=== PATIENT | male | born 1955 | race Caucasian/White ===

== ENCOUNTER 2024-08-17 23:53 | Inpatient (IN) | payer MEDICARE, SELFPAY ==
[2024-08-18] VITALS (14 sets, daily range): BP systolic 93–169; BP diastolic 60–111; PULSE 89–150; RESP 16–20; TEMP 36.4–36.7; O2SAT 93–97; BMI 22.3
--- NOTE | 2024-08-18 01:11 | PC.NURSE ---
pt states that he has had problems with urination thinks he is passing a kidney stone. provider made aware, pt states there is a man in his room ED8, this rn was present and no others in the room.
--- NOTE | 2024-08-18 01:18 | ED.PSYCH ---
HPI - Psych General Chief Complaint: Psychiatric Symptoms Stated Complaint: Audio/visual hallucinations, ETOH w/d? Time Seen by Provider: 08/18/24 00:12 Source: patient, EMS and police Mode of arrival: EMS Limitations: no limitations History of Present Illness ED Provider: Dr. Ladonna Hannah HPI Narrative: Patient comes to the emergency room via ambulance and with PD on board. Patient is calm and cooperative. According to PD, the patient called 911 because he was sure that somebody was in his house. Patient ran to his neighbor's house, knocked on the door asking for help. The neighbors called the police department. When they arrived, they inspected the patient's property and there was no went in. Patient told PD be was feeling safe and could stay at home. However, while PD was still outside of his house, patient ran outside of the house yelling that there was someone in his house, patient had a large machete in his hand, which was removed from the patient's hand. Patient is not suicidal or homicidal, not aggressive. On arrival, patient states that he feels well. Patient was Section 12 in the field by PD Related Data Allergies Allergy/AdvReac Type Severity Reaction Status Date / Time aspirin [ASPIRIN] Allergy Unknown BLEEDING Unverified 08/18/24 00:27 R/T ULCER From [facility] Allergy Mild RASH AT IV Uncoded 08/18/24 00:27 SITE Review of Systems Review of Systems: Constitutional : No Weight loss, No Fever, No Chills, No Night Sweats, No Fatigue, No Malaise ENT/Mouth : No Hearing loss, No Ear Pain, No Nasal Congestion, No Sinus Pain, No Hoarseness, No sore throat, No Rhinorrhea, No Swallowing Difficulty Eyes: No Eye Pain, No Swelling, No Redness, No Foreign Body, No Discharge, No Vision Changes Cardiovascular : No Chest Pain, No SOB, No Dyspnea on Exertion, No Orthopnea, No Edema, No Palpitations Respiratory : No Cough, No Sputum, No Wheezing, No Smoke Exposure, No Dyspnea Gastrointestinal : No Nausea, No Vomiting, No Diarrhea, No Constipation, No abdominal Pain, No Hematochezia, No Melena Genitourinary : no irregular bleeding, No Dysuria, No Urinary Frequency, No Hematuria, No Urinary Incontinence, No Urgency, No Flank Pain, No Urinary Flow Changes, No Hesitancy Musculoskeletal : No joint pain, No Myalgias, No Joint Swelling Skin : No Skin Lesions, No rash Neuro : No Weakness, No Numbness, No Paresthesias, No Loss of Consciousness, No Dizziness, No Headache Psych : No Anxiety/Panic, No Depression, No SI/HI/AH/VH, No Social Issues, Heme/Lymph: No Bruising, No Bleeding,No Lymphadenopathy Endocrine : No Polyuria, No Polydipsia, No Temperature Intolerance [facility] Past Medical History Medical History COPD (chronic obstructive pulmonary disease) Hypertension Social History Social History Alcohol intake: current Alcohol intake frequency: 3 or more drinks per day Alcohol type: beer Smoked in Last 30 Days: No Use of substances other than those prescribed or required for medical reasons: No Any prior treatment program specific to substance use: No Advance Directives: No Advance Directives Information Provided: Yes Do you have a plan to hurt others: No Plan Physical Exam Vital Signs: Vital Signs: Last Vital Signs Temp 97.9 F 08/18/24 00:24 Pulse 119 H 08/18/24 00:24 Resp 20 08/18/24 00:24 BP 160/91 H 08/18/24 00:24 Pulse Ox 93 08/18/24 00:24 O2 Del Method Room Air 08/18/24 00:24 BMI result Body Mass Index 22.3 Const: Other: Appearance: Alert. Oriented X3. No acute distress. Eyes: Pupils equal, round and reactive to light. ENT: Pharynx normal. Neck: Normal inspection. Neck supple. No lymph nodes noted. No crepitus CVS: Normal heart rate and rhythm. Pulses normal. Normal S1 and S2 Respiratory: No respiratory distress. Breath sounds normal. No Wheezing. No rales Abdomen: Soft and nontender. No rigidity. No distention. Skin: Skin warm and dry. Normal skin color. Normal skin turgor. Extremities: No lower extremity edema. No Lacerations. No Rash Neuro: Oriented X 3. No motor deficit. No sensory deficit. Moving all extremities. No slurred speech. CN 2 through 12 grossly intact Psych: calm, cooperative, normal affect Course Course Course Narrative: Every so often, patient states that he sees people in his room. Patient is convinced that people are there when no one else is standing in the room other than me or patient's nurse. Patient remains calm and cooperative. All of patient's labs are pending Patient is on a Section 12 started a police department Physician observation started at 00:30 Care team consult pending Medical Decision Making Differential Diagnosis Differential Diagnoses: The differential diagnosis associated with the presentation includes (Schizophrenia, bipolar disorder, delusions, polysubstance abuse) Critical Care Time Critical Care Time Critical Care Time: Yes Total Critical Care Time: 35 Attestation: I have personally provided critical care time. Time includes review of lab data, radiology results, discussion with consultants, and monitoring for potential decompensation. Intervention performed as documented. Discharge Plan Discharge Clinical Impression: Hallucination, visual Patient Disposition: Still a Patient Print Language: Polish
[2024-08-18 02:34] LABS: Basophils Percent Auto 0.2 % (0-2); Eosinophils Percent Auto 0.1 % (0-4); Hematocrit 40.8 % (42.0-52.0); Hemoglobin 14.5 g/dl (14.0-18.0); Imm Gran Abs Auto 0.06 X10*3/uL (0.00-0.03); Imm Gran Pct Auto 0.4 % (0.0-0.4); Lymphocytes Absolute Auto 0.7 X10*3/uL (1.2-4.9); Lymphocytes Percent Auto 4.8 % (20-40); MANUAL DIFF FLAG NO; Mean Corpuscular HGB Conc 35.5 g/dl (31.0-36.0); Mean Corpuscular Hemoglobin 32.1 pg (27.0-33.0); Mean Corpuscular Volume 90.3 fL (80.0-98.0); Mean Platelet Volume 9.6 fL (9.4-12.4); Monocytes Absolute Auto 0.9 X10*3/uL (0.1-1.2); Monocytes Percent Auto 6.4 % (2-11); Neutrophils Absolute Auto 12.1 x10*3/uL (2.0-8.3); Neutrophils Percent Auto 88.1 % (45-73); Platelet Count 272 X10*3/uL (160-400); Red Blood Count 4.52 X10*6/uL (4.60-5.80); Red Cell Distribution Width 14.4 % (11.0-16.0); White Blood Count 13.7 X10*3/uL (4.8-10.8)
[2024-08-18 02:38] LABS: Appearance Urine Clear; Color Urine Yellow; Glucose Urine UA Negative (Negative); Leukocyte Esterase Urine Negative (Negative); Nitrite Urine Negative (Negative); PH 5.5 (5.0-9.0); UMIC TRIGGER UACC YES; Urine Blood Trace (Negative); Urine Ketones Trace mg/dL (Negative); Urine Protein Trace mg/dL (Neg-Trace)
--- NOTE | 2024-08-18 02:39 | MHC.EDTECH ---
pt changed over by security, belongings placed on [facility]
[2024-08-18 02:40] LABS: Bacteria Urine None Seen (None Seen); Hyaline Casts Urine 0-2 /LPF (0-2); RBC Urine 0-2 /HPF (0-2); Squamous Epithelial Cell Urine 0-2 /HPF (0-2); WBC Urine 0-5 /HPF (0-5)
[2024-08-18 02:50] LABS: Amphetamine Screen Urine Not Detected (Not Detect); Barbiturates, Urine Not Detected (Not Detect); Benzodiazepines Screen Urine Not Detected (Not Detect); Buprenorphine Scr Not Detected (Not Detect); Cannabinoid Screen Urine Not Detected (Not Detect); Cocaine Screen Urine Not Detected (Not Detect); Fentanyl, urine Not Detected (Not Detect); Methadone Screen, Urine Not Detected (Not Detect); Opiate Screen Urine Not Detected (Not Detect); Oxycodone Screen Urine Not Detected (Not Detect); Phencyclidine Screen Urine Not Detected (Not Detect)
[2024-08-18 02:55] LABS: Alanine Aminotransferase 14 U/L (0-40); Albumin Level 4.3 g/dL (3.5-5.0); Anion Gap 17 (12-20); Aspartate Amino Transferase 44 U/L (5-37); Bilirubin Direct 0.5 mg/dL (0.0-0.5); Blood Urea Nitrogen 18 mg/dL (9-16); Carbon Dioxide 21 mmol/L (22-29); Chloride 95 mmol/L (96-108); Creatinine Clr Calc Pharmacy 44.1; Estimated Glomerular Filt Rate 52; Ethanol < 10 mg/dL; Glucose Random 108 mg/dL (60-115); Potassium 4.4 mmol/L (3.3-5.1); Sodium 129 mmol/L (135-145)
[2024-08-18 03:19] LABS: Alkaline Phosphatase 101 U/L (39-117); Bilirubin Total 1.2 mg/dL (0.0-1.0)
--- NOTE | 2024-08-18 03:25 | PC.NURSE ---
pt talking to himself say please dont, please dont pt is seeing a person in his room that is not there. pt is also hearing voices. pt is in green gown. and visable to staff. pt denies s1 or h1
[2024-08-18] MEDS: LORazepam 2 MG/ML VIAL IM (06:47)
[2024-08-18] MEDS: Haloperidol Lactate 5 MG/ML VIAL IM (06:47)
[2024-08-18] MEDS: diphenhydrAMINE HCL 50 MG/ML VIAL IM (06:47)
--- NOTE | 2024-08-18 09:01 | PC.NURSE ---
assumed care of patient at 0700, patient responds to noxious stimuli, laying in bed supine. patient resp even and unlabored. patient skin noted to be dry and intact. patient appears to be settling down after prev shift chemical restraint seizure pads placed for patient safety. patient placed on tele monitor, VSS at this time. per ED provider to hold phenobarb protocol due to patient boarder line unresponsive. camera sitter in place for patient safety.
--- NOTE | 2024-08-18 10:10 | PC.NURSE ---
patient remains sedated after chemical restraint. VSS, resp even and unlabored. patient covered with warm blanket, no acute signs of distress. unable to assess CIWA due to pt current state
--- NOTE | 2024-08-18 11:31 | PHA.MEDREC ---
Addendum entered by Gio Johnston RPh 08/18/24 12:08: Med rec was reviewed by [facility]. Original Note: Pharmacy Consult ? Medication Reconciliation Pharmacy has completed the medication reconciliation. Tried to speak to patient , however he was AMS. There are no contacts on file. Utilized claims to confirm med list.
--- NOTE | 2024-08-18 11:43 | P.HPHOSP_ITS ---
History of Present Illness Date of Service: 08/18/24 Chief Complaint: Confusion and encephalopathy History was obtained from the medical record, RN, ED record, EMS report, and [facility] records, as the patient is sedated and unable to provide information directly. The patient is a 69-year-old male with a history of alcohol abuse, COPD, hypertension, and anxiety, presenting with confusion. According to [facility] records, he consumes approximately 24 beers weekly. He was reportedly confused and hallucinating when he approached a neighbor, who called 911. By the time EMS arrived, he had returned to his home, where he was found holding a machete and claiming to see and hear a woman. Upon arrival at the ED, the patient was agitated and was sedated with a B-52 cocktail (Benadryl 25 mg, Haldol 5 mg, and Ativan 2 mg). Since sedation, he has remained very lethargic and unable to provide history. Laboratory results show a WBC of 13, sodium of 129, an unremarkable urinalysis, and a negative drug screen. He has been admitted for presumed alcohol withdrawal. Phenobarbital was ordered but has not yet been administered due to his current level of sedation from the B-52 . Review of Systems 2 Review of Systems: confusion, hallucination. Yes Unobtainable due to mental status [facility] Medical History Alcohol dependence Anxiety COPD (chronic obstructive pulmonary disease) Hypertension Social History Alcohol intake: current Alcohol intake frequency: 3 or more drinks per day Alcohol type: beer Smoked in Last 30 Days: No Use of substances other than those prescribed or required for medical reasons: No Any prior treatment program specific to substance use: No Advance Directives: No Advance Directives Information Provided: Yes Do you have a plan to hurt others: No Plan Meds Allergies Allergy/AdvReac Type Severity Reaction Status Date / Time aspirin [ASPIRIN] Allergy Unknown BLEEDING Unverified 08/18/24 00:27 R/T ULCER From [facility] Allergy Mild RASH AT IV Uncoded 08/18/24 00:27 SITE Active Medications: Current Medications Pharmacy Consult (Consult Rx Etoh Phenob Im/Po) 1 each MISCELLANE ONCE PRN; Protocol PRN Reason: Consult order Phenobarbital (Phenobarbital 15 Mg Tablet) 45 mg PO BID [facility]; Protocol Stop: 08/20/24 09:01 Phenobarbital (Phenobarbital 30 Mg Tablet) 30 mg PO BID [facility]; Protocol Stop: 08/22/24 09:01 Phenobarbital (Phenobarbital 30 Mg Tablet) 30 mg PO BEDTIME [facility]; Protocol Stop: 08/23/24 21:01 Phenobarbital Sodium (Phenobarbital Sodium 130 Mg/Ml Vial Im Q3hx2) 230 mg IM Q3H [facility]; Protocol Stop: 08/18/24 13:31 Home Medications ?Medication ?Instructions ?Recorded ?Confirmed ?Last Taken ?Type albuterol sulfate 90 mcg/actuation 2 puff inhalation Q6H PRN wheezing 08/18/24 08/18/24 Unknown History aerosol inhaler amlodipine 10 mg tablet 10 mg PO DAILY 08/18/24 08/18/24 Unknown History meloxicam 15 mg tablet 15 mg PO DAILY 08/18/24 08/18/24 Unknown History Physical Exam 2 Vital Signs and Narrative: Vital Signs: Last Vital Signs Temp 97.5 F 08/18/24 07:36 Pulse 89 08/18/24 10:07 Resp 20 08/18/24 10:07 BP 110/63 08/18/24 10:07 Pulse Ox 96 08/18/24 10:07 O2 Del Method Room Air 08/18/24 10:07 BMI result Body Mass Index 22.3 Const: Other: Constitutional: Alert, but very confused Mental Status: Oriented to person, place and time. Eyes: Pupils are equal, round and reactive to light. Ear, Nose and Throat:very poor dentition Respiratory: Clear to auscultation. No wheezing, rales or rhonchi. Cardiovascular: S1 S2 regular. No murmurs, rubs or gallops. Gastrointestinal: Abdomen soft, non-tender, non-distended. Normal bowel sounds.? Neurologic: . No focal neurological deficits. Moves all extremities spontaneously.? Cranial nerves II-XII not able to assess Skin: No rashes or lesions.? Musculoskeletal: No cyanosis or clubbing. Psychiatric: very confused, Results Labs 08/18/24 02:28 08/18/24 02:28 Labs: Laboratory Results - last 24 hr 08/18/24 02:28 MCV 90.3 MCH 32.1 MCHC 35.5 RDW 14.4 Plt Count 272 MPV 9.6 Immature Gran % (Auto) 0.4 Neut % (Auto) 88.1 H Lymph % (Auto) 4.8 L [place] % (Auto) 6.4 Eos % (Auto) 0.1 Baso % (Auto) 0.2 Lymph # (Auto) 0.7 L [place] # (Auto) 0.9 Eos # (Auto) 0.0 Baso # (Auto) 0.0 Abs Immat Gran (auto) 0.06 H Absolute Neuts (auto) 12.1 H Absolute Nucleated RBC 0.000 Nucleated RBC % (auto) 0.0 Anion Gap 17 Estim Creat Clear Calc 44.1 Estimated GFR 52 Random Glucose 108 Calcium 10.0 Total Bilirubin 1.2 H Direct Bilirubin 0.5 AST 44 H ALT 14 Alkaline Phosphatase 101 Total Protein 8.0 Albumin 4.3 Urine Color Yellow Urine Appearance Clear Urine pH 5.5 Ur Specific [place] 1.010 Urine Protein Trace Urine Glucose (UA) Negative Urine Ketones Trace Urine Blood Trace H Urine Nitrite Negative Ur Leukocyte Esterase Negative Urine RBC 0-2 Urine WBC 0-5 Ur Squamous Epith Cells 0-2 Urine Bacteria None Seen Hyaline Casts 0-2 Urine Opiates Screen Not Detected Ur Buprenorphine Scrn Not Detected Ur Oxycodone Screen Not Detected Urine Methadone Screen Not Detected Urine Fentanyl Screen Not Detected Ur Barbiturates Screen Not Detected Ur Phencyclidine Scrn Not Detected Ur Amphetamines Screen Not Detected U Benzodiazepines Scrn Not Detected Urine Cocaine Screen Not Detected U Marijuana (THC) Screen Not Detected Ethyl Alcohol < 10 Assessment and Plan (1) Hallucination, visual: Status: Acute (2) Delirium tremens: Status: Acute (3) Metabolic encephalopathy: Status: Acute Plan The patient is a 69-year-old male with a history of alcohol abuse, COPD, hypertension, and anxiety, presenting with confusion, visual, and auditory hallucinations. His clinical presentation is consistent with acute alcohol withdrawal with DTs. Alcohol withdrawal with DTsl IV hydration Phenobarbital protocol Check ammonia Thiamine and folate replacement When mental status clears, addiction medicine consult CT of the head if confusion persists Consider psych consult if symptoms persist beyond alcohol withdrawal Hyponatremia?likely related to chronic alcoholism IV fluids (LR) and repeat level in the morning Mild leukocytosis?no source of infection identified, likely reactive; if he develops a fever, further workup will include cultures and possibly a lumbar puncture Hypertension?BP normal, monitor Anxiety disorder?PRN hydroxyzine in addition to the above management History of COPD?no acute exacerbation, inhalers PRN DVT prophylaxis?Lovenox Full code Admit for at least 2 midnights for management of DTs Quality Stroke Does the patient have a stroke diagnosis?: No VTE Prior VTE?: No VTE Risk Level:: Medical - moderate - high VTE Device Contraindication: Treatment Not Indicated VTE Drug Contraindication: N/A - Med Ordered
[2024-08-18 12:25] LABS: Hematocrit 37.4 % (42.0-52.0); Hemoglobin 13.2 g/dl (14.0-18.0); Mean Corpuscular HGB Conc 35.3 g/dl (31.0-36.0); Mean Corpuscular Hemoglobin 32.1 pg (27.0-33.0); Mean Platelet Volume 9.3 fL (9.4-12.4); Platelet Count 228 X10*3/uL (160-400); Red Blood Count 4.11 X10*6/uL (4.60-5.80); Red Cell Distribution Width 14.5 % (11.0-16.0); White Blood Count 10.4 X10*3/uL (4.8-10.8)
[2024-08-18 12:31] LABS: Ammonia 34 umol/L (13-55)
[2024-08-18 12:38] LABS: Anion Gap 16 (12-20); Blood Urea Nitrogen 15 mg/dL (9-16); Calcium 8.9 mg/dL (8.4-10.2); Carbon Dioxide 19 mmol/L (22-29); Chloride 99 mmol/L (96-108); Creatinine Clr Calc Pharmacy 58.2; Estimated Glomerular Filt Rate > 60; Glucose Random 102 mg/dL (60-115); Potassium 4.3 mmol/L (3.3-5.1); Sodium 130 mmol/L (135-145)
[2024-08-18] MEDS: Thiamine HCL 100 MG in 0.9 % Sodium Chloride 100 ML 202 MG IV (12:44)
[2024-08-18] MEDS: Lactated Ringers 1,000 ML 125 ML IVCONT ×2 (12:52→20:22)
[2024-08-18] MEDS: Enoxaparin Sodium 40 MG/0.4 ML SYRINGE SUBCUT (12:52)
--- NOTE | 2024-08-18 14:15 | PC.NURSE ---
patient appears to be more awake and alert, patient CIWA 29, patient unable to state whether he is having hallucinations due to patient being completely disoriented. patient sitter alarm went off, patient standing at edge of bed peeing on floor. patient placed back in bed, new hernandez and blankets given. condom cath placed on patient for urination.
[2024-08-18] MEDS: PHENobarbitaL sodium 130 MG/ML IM ONCE 200 MG IM (14:17)
[2024-08-18] MEDS: Folic Acid 1 MG in 0.9 % Sodium Chloride 50 ML 100.4 MG IV (14:22)
[2024-08-18] MEDS: Haloperidol Lactate 5 MG/ML VIAL 2 MG IM (16:28)
[2024-08-18] MEDS: PHENobarbitaL sodium 130 MG/ML VIAL IM Q3Hx2 150 MG IM ×2 (18:36→21:28)
--- NOTE | 2024-08-18 19:23 | PC.NURSE ---
assumed care of pt at 191 report received from Olya DELGADO
[2024-08-19] VITALS (7 sets, daily range): BP systolic 134–167; BP diastolic 67–81; PULSE 98–114; RESP 16–20; TEMP 36.3–37.3; O2SAT 90–93
--- NOTE | 2024-08-19 01:09 | PC.NURSE ---
Pt admitted from ED around 1999. Patient drowsy. Able to state name and along with location. Unable to complete admission assessment d/t patient not bein able to answer questions. CIWA as charted. Given scheduled IM Pheno. Patient with intermittent restless with need to void then falls back asleep. Pt currently not safe to take any PO medications so PO Pheno not administered. MD Ferguson made aware along with patients current presentation. Bed alarm on. Camera in place for safety. VSS as charted. Call resendez in reach.
[2024-08-19] MEDS: Lactated Ringers 1,000 ML 125 ML IVCONT ×3 (04:39→20:28)
[2024-08-19 07:50] LABS: Anion Gap 17 (12-20); Blood Urea Nitrogen 10 mg/dL (9-16); Calcium 8.9 mg/dL (8.4-10.2); Carbon Dioxide 21 mmol/L (22-29); Chloride 101 mmol/L (96-108); Creatinine Clr Calc Pharmacy 65.9; Estimated Glomerular Filt Rate > 60; Glucose Random 78 mg/dL (60-115); Magnesium 1.7 mg/dL (1.6-2.6); Potassium 4.6 mmol/L (3.3-5.1); Sodium 134 mmol/L (135-145)
[2024-08-19 07:57] LABS: Alanine Aminotransferase 21 U/L (0-40); Albumin Level 3.6 g/dL (3.5-5.0); Alkaline Phosphatase 77 U/L (39-117); Anion Gap 16 (12-20); Aspartate Amino Transferase 68 U/L (5-37); Bilirubin Total 0.8 mg/dL (0.0-1.0); Blood Urea Nitrogen 11 mg/dL (9-16); Calcium 8.9 mg/dL (8.4-10.2); Carbon Dioxide 19 mmol/L (22-29); Chloride 102 mmol/L (96-108); Creatinine Clr Calc Pharmacy 67.4; Estimated Glomerular Filt Rate > 60; Glucose Random 78 mg/dL (60-115); Potassium 4.4 mmol/L (3.3-5.1); Sodium 133 mmol/L (135-145); Total Protein 6.5 g/dL (6.5-8.0)
--- NOTE | 2024-08-19 09:39 | MHC.CM.PN ---
Addendum entered by Billie Warner RN 08/19/24 09:48: PT'S GOAL FOR DC IS HOME AT THIS TIME Original Note: IMM 08/19/24, EMR REVIEWED, PT DT'S/ETOH WITHDRAWAL, CM MET W/PT WHO DOES NOT APPEAR TO BE AT BASELINE HOWEVER ALERT AND ABLE TO ANSWER MOST QUESTIONS ALTHOUGH MAY NOT BE RELIABLE AT THIS TIME, PT DOES KNOW HIS NAME AND ADDRESS, THAT HE LIVES ALONE, DENIES USE OF DME/SERVICES. PT REPORTS HE DOES HAVE MEDICARE WHEN ASKED D/T PT'S AGE AND BEING RETIRED, PT ALSO REPORTS HE HAS THE Pay with a [employer] WELL. PT BELIEVES THE PCP ON FILE IS CORRECT HOWEVER CANNOT RECALL NAME, PT ALSO REPORTS HE THINKS HE HAS A HCP HOWEVER CM UNSURE IF PT UNDERSTANDS WHAT IT IS. NEXT OF KIN ON FILE W/NO PHONE NUMBER. PT WILL NEED ADDICTION MEDICINE/RECOVERY TEAM PRIOR TO DC.
--- NOTE | 2024-08-19 10:00 | PC.NURSE ---
Addendum entered by Fatemeh Desai RN 08/19/24 19:35: at 1300 pt was found to be impulsive and incontinent of stool in bed and floor. ambulated pt to bathroom standby assist. pt axox3 and able to tolerate PO meds at this time. notified, medicated per SEP. Original Note: pt was found to be lethargic and drowsy. pt was able to arouse to name and open eyes but for a short time. informed Dr. Coreas that it was unsafe to admin PO meds at this time. This RN will re-attempt to give PO meds when pt is awake and alert.
[2024-08-19] MEDS: Folic Acid 1 MG in 0.9 % Sodium Chloride 50 ML 100.4 MG IV (10:39)
[2024-08-19] MEDS: Enoxaparin Sodium 40 MG/0.4 ML SYRINGE SUBCUT (10:41)
[2024-08-19] MEDS: Thiamine HCL 100 MG in 0.9 % Sodium Chloride 100 ML 202 MG IV (11:15)
--- NOTE | 2024-08-19 13:07 | ECG_ITS ---
Test Reason : HR 120'S-130'S SUSTAINED Blood Pressure : */* mmHG Vent. Rate : 100 BPM Atrial Rate : 100 BPM P-R Int : 136 ms QRS Dur : 60 ms QT Int : 320 ms P-R-T Axes : 79 -64 66 degrees QTcB Int : 412 ms Normal sinus rhythm Left axis deviation Abnormal ECG When compared with ECG of 07-Jul-2010 06:58, MANUAL COMPARISON REQUIRED PREVIOUS ECG IS INCOMPATIBLE Referred By: Guilherme Coreas Electronically Signed By: JOSÉ ANTONIO WILSON MD
[2024-08-19] MEDS: PHENobarbitaL 15 MG TABLET 45 MG PO ×2 (13:13→20:28)
[2024-08-19] MEDS: Multivitamin TABLET 1 TAB PO (13:13)
--- NOTE | 2024-08-19 13:18 | HO.PM.IMPN ---
Subjective Subjective Date of Service: 08/19/24 Interval History: follow up alcohol withdrawal with DTs less confusion and no hallucination reported on this day Physical Exam Vital Signs: Vital Signs: vitals reviewed and stable. Const: Other: General: oriented to self and place, no acute distress Resp: CTA bilateral CVS: S1,S2,RRR GI: +BS, NT, no distention Skin: No rash Neuro: motor grossly intact Psych: appropriate affect Objective Data Active Medications Acetaminophen (Acetaminophen 325 Mg Tablet) 650 mg PO Q6H PRN PRN Reason: Pain, Mild 1-3,fever,headache Last Admin: 08/21/24 01:50 Dose: 650 mg Documented By: JOSE FRANCISCO Al Hydroxide/Mg Hydroxide (Magnesium Hydrox/Alum Hydrox 30 Ml Oral.Susp) 30 ml PO Q4H PRN PRN Reason: Heartburn Albuterol Sulfate (Albuterol Sulfate 90 Mcg 8 Gm Inhaler) 2 puff INHALE Q6H PRN PRN Reason: wheezing Amlodipine Besylate (Amlodipine Besylate 10 Mg Tablet) 10 mg PO DAILY [facility]; Protocol Last Admin: 08/21/24 11:10 Dose: 10 mg Documented By: LUIS CARLOS Calcium Carbonate (Calcium Carbonate 750 Mg Tab.Chew) 750 mg PO Q4H PRN PRN Reason: Heartburn Enoxaparin Sodium (Enoxaparin Sodium 40 Mg/0.4 Ml Syringe) 40 mg SUBCUT DAILY [facility] Last Admin: 08/21/24 12:59 Dose: 40 mg Documented By: LUIS CARLOS Thiamine HCl 100 mg/ Sodium (Chloride) 101 mls @ 202 mls/hr IV DAILY [facility] Last Admin: 08/21/24 13:03 Dose: 202 mls/hr Documented By: LUIS CARLOS Folic Acid 1 mg/ Sodium (Chloride) 50.2 mls @ 100.4 mls/hr IV DAILY [facility] Last Admin: 08/21/24 13:09 Dose: 100.4 mls/hr Documented By: LUIS CARLOS Magnesium Hydroxide (Milk Of Magnesia 30 Ml Oral.Susp) 30 ml PO DAILY PRN PRN Reason: Constipation Melatonin (Melatonin 3 Mg Tablet) 6 mg PO BEDTIME PRN PRN Reason: Insomnia Last Admin: 08/20/24 21:04 Dose: 6 mg Documented By: JOSE FRANCISCO Multivitamins/Vitamin C (Multivitamin Tablet) 1 tab PO DAILY [facility] Last Admin: 08/21/24 12:59 Dose: 1 tab Documented By: LUIS CARLOS Pharmacy Consult (Consult Rx Etoh Phenob Im/Po) 1 each MISCELLANE ONCE PRN; Protocol PRN Reason: Consult order Pharmacy Consult (Consult Rx Etoh Phenob Im/Po) 1 each MISCELLANE ONCE PRN; Protocol PRN Reason: Consult order Phenobarbital (Phenobarbital 30 Mg Tablet) 30 mg PO BEDTIME [facility]; Protocol Stop: 08/23/24 21:01 Phenobarbital (Phenobarbital 15 Mg Tablet) 15 mg PO BID [facility]; Protocol Stop: 08/22/24 09:01 Last Admin: 08/21/24 12:59 Dose: 15 mg Documented By: LUIS CARLOS Phenobarbital (Phenobarbital 15 Mg Tablet) 15 mg PO DAILY [facility]; Protocol Stop: 08/24/24 09:01 Polyethylene Glycol (Polyethylene Glycol 3350 17 Gm Powd.Pack) 17 gm PO DAILY PRN PRN Reason: Constipation Sodium Chloride (0.9 % Sodium Chloride Flush 3 Ml Syringe) 3 ml IVFLUSH QSHIFT [facility] Last Admin: 08/21/24 13:05 Dose: 3 ml Documented By: LUIS CARLOS Labs 08/21/24 06:43 08/21/24 06:43 Labs: Laboratory Results - last 24 hr 08/20/24 08/21/24 21:46 06:43 MCV 91.2 MCH 32.3 MCHC 35.4 RDW 14.6 Plt Count 233 MPV 9.7 Absolute Nucleated RBC 0.000 Nucleated RBC % (auto) 0.0 Anion Gap 12 11 L Estim Creat Clear Calc 83.3 Estimated GFR > 60 Random Glucose 114 Calcium 8.6 Assessment and Plan (1) Hallucination, visual: Status: Acute (2) Delirium tremens: Status: Acute Plan The patient is a 69-year-old male with a history of alcohol abuse, COPD, hypertension, and anxiety, presenting with confusion, visual, and auditory hallucinations. His clinical presentation is consistent with acute alcohol withdrawal with DTs. Alcohol withdrawal with DTsl, required agresive sedation with haldol for hallucination, some confusion, but no hallucination continue Phenobarbital protocol Thiamine and folate replacement addiction med consult Psych consult if halluicination HypOnatremia?likely related to chronic alcoholism hydrated with LR Mild leukocytosis?likely reactive Hypertension? norvasc Anxiety disorder?hydroxyzine if needed History of COPD?no acute exacerbation, inhalers PRN DVT prophylaxis?Lovenox Full code inpt: alcohol withdrawal and DTs late entry from 08/19 Quality Stroke Does the patient have a stroke diagnosis?: No VTE Prior VTE?: No VTE Risk Level:: Medical - moderate - high VTE Device Contraindication: Treatment Not Indicated VTE Drug Contraindication: N/A - Med Ordered
[2024-08-19] MEDS: amLODIPine Besylate 5 MG TABLET PO (13:21)
[2024-08-20] VITALS (7 sets, daily range): BP systolic 135–160; BP diastolic 66–88; PULSE 95–110; RESP 16–20; TEMP 36.4–36.9; O2SAT 89–94
[2024-08-20] MEDS: Lactated Ringers 1,000 ML 125 ML IVCONT (04:50)
[2024-08-20] MEDS: 0.9 % Sodium Chloride Flush 3 ML SYRINGE IVFLUSH ×3 (10:31→21:05)
[2024-08-20] MEDS: amLODIPine Besylate 10 MG TABLET PO (10:31)
[2024-08-20] MEDS: Thiamine HCL 100 MG in 0.9 % Sodium Chloride 100 ML 202 MG IV (10:31)
[2024-08-20] MEDS: Multivitamin TABLET 1 TAB PO (10:43)
[2024-08-20] MEDS: PHENobarbitaL 15 MG TABLET 45 MG PO (10:43)
[2024-08-20] MEDS: Enoxaparin Sodium 40 MG/0.4 ML SYRINGE SUBCUT (10:43)
[2024-08-20] MEDS: Folic Acid 1 MG in 0.9 % Sodium Chloride 50 ML 100.4 MG IV (11:36)
[2024-08-20] MEDS: Acetaminophen 325 MG TABLET 650 MG PO ×2 (11:55→18:16)
--- NOTE | 2024-08-20 12:26 | MHC.CM.PN ---
EMR REVIEWED, PER HOSPITALIST PT MAY BE CLEARED FOR DC EARLY TOMORROW, Harris BOSE REQUESTED HOWEVER HOSPITALIST REPORTS HE WALKED PT UP AND DOWN [place] AND PT DID NOT HAVE ANY ISSUES, ANTIC PT WILL DC HOME TOMORROW.
--- NOTE | 2024-08-20 13:11 | HO.PM.IMPN ---
Subjective Subjective Date of Service: 08/20/24 Interval History: Pt seen and examined with DANNY Silva, we got him out of bed and ambulated him in the [place] and had no problem with his gait, he was alert, and no hallucination Review of Systems confusion, hallucination. Physical Exam Vital Signs: Vital Signs: Vitals reviewed and were stable. Const: Other: General: AO X 3, no acute distress Resp: CTA bilateral CVS: S1,S2,RRR GI: +BS, NT, no distention Skin: No rash Neuro: motor grossly intact Psych: appropriate affect Objective Data Active Medications Acetaminophen (Acetaminophen 325 Mg Tablet) 650 mg PO Q6H PRN PRN Reason: Pain, Mild 1-3,fever,headache Last Admin: 08/21/24 01:50 Dose: 650 mg Documented By: JOSE FRANCISCO Al Hydroxide/Mg Hydroxide (Magnesium Hydrox/Alum Hydrox 30 Ml Oral.Susp) 30 ml PO Q4H PRN PRN Reason: Heartburn Albuterol Sulfate (Albuterol Sulfate 90 Mcg 8 Gm Inhaler) 2 puff INHALE Q6H PRN PRN Reason: wheezing Amlodipine Besylate (Amlodipine Besylate 10 Mg Tablet) 10 mg PO DAILY [facility]; Protocol Last Admin: 08/21/24 11:10 Dose: 10 mg Documented By: LUIS CARLOS Calcium Carbonate (Calcium Carbonate 750 Mg Tab.Chew) 750 mg PO Q4H PRN PRN Reason: Heartburn Enoxaparin Sodium (Enoxaparin Sodium 40 Mg/0.4 Ml Syringe) 40 mg SUBCUT DAILY [facility] Last Admin: 08/21/24 12:59 Dose: 40 mg Documented By: LUIS CARLOS Thiamine HCl 100 mg/ Sodium (Chloride) 101 mls @ 202 mls/hr IV DAILY [facility] Last Admin: 08/21/24 13:03 Dose: 202 mls/hr Documented By: LUIS CARLOS Folic Acid 1 mg/ Sodium (Chloride) 50.2 mls @ 100.4 mls/hr IV DAILY [facility] Last Admin: 08/21/24 13:09 Dose: 100.4 mls/hr Documented By: LUIS CARLOS Magnesium Hydroxide (Milk Of Magnesia 30 Ml Oral.Susp) 30 ml PO DAILY PRN PRN Reason: Constipation Melatonin (Melatonin 3 Mg Tablet) 6 mg PO BEDTIME PRN PRN Reason: Insomnia Last Admin: 08/20/24 21:04 Dose: 6 mg Documented By: JOSE FRANCISCO Multivitamins/Vitamin C (Multivitamin Tablet) 1 tab PO DAILY [facility] Last Admin: 08/21/24 12:59 Dose: 1 tab Documented By: LUIS CARLOS Pharmacy Consult (Consult Rx Etoh Phenob Im/Po) 1 each MISCELLANE ONCE PRN; Protocol PRN Reason: Consult order Pharmacy Consult (Consult Rx Etoh Phenob Im/Po) 1 each MISCELLANE ONCE PRN; Protocol PRN Reason: Consult order Phenobarbital (Phenobarbital 30 Mg Tablet) 30 mg PO BEDTIME [facility]; Protocol Stop: 08/23/24 21:01 Phenobarbital (Phenobarbital 15 Mg Tablet) 15 mg PO BID [facility]; Protocol Stop: 08/22/24 09:01 Last Admin: 08/21/24 12:59 Dose: 15 mg Documented By: LUIS CARLOS Phenobarbital (Phenobarbital 15 Mg Tablet) 15 mg PO DAILY [facility]; Protocol Stop: 08/24/24 09:01 Polyethylene Glycol (Polyethylene Glycol 3350 17 Gm Powd.Pack) 17 gm PO DAILY PRN PRN Reason: Constipation Sodium Chloride (0.9 % Sodium Chloride Flush 3 Ml Syringe) 3 ml IVFLUSH QSHIFT [facility] Last Admin: 08/21/24 13:05 Dose: 3 ml Documented By: LUIS CARLOS Labs 08/21/24 06:43 08/21/24 06:43 Labs: Laboratory Results - last 24 hr 08/20/24 08/21/24 21:46 06:43 MCV 91.2 MCH 32.3 MCHC 35.4 RDW 14.6 Plt Count 233 MPV 9.7 Absolute Nucleated RBC 0.000 Nucleated RBC % (auto) 0.0 Anion Gap 12 11 L Estim Creat Clear Calc 83.3 Estimated GFR > 60 Random Glucose 114 Calcium 8.6 Assessment and Plan (1) Hallucination, visual: Status: Acute (2) Delirium tremens: Status: Acute Plan The patient is a 69-year-old male with a history of alcohol abuse, COPD, hypertension, and anxiety, presenting with confusion, visual, and auditory hallucinations. His clinical presentation is consistent with acute alcohol withdrawal with DTs. Alcohol withdrawal with DTsl, required agresive sedation with haldol for hallucination, doing better continue Phenobarbital protocol Thiamine and folate replacement addiction med consult no indication for Psych consults since hallucinations resolved.l Hyponatremia?likely related to chronic alcoholism hydrated with LR Mild leukocytosis?likely reactive Hypertension?resume norvasc Anxiety disorder?hydroxyzine prn History of COPD?no acute exacerbation, inhalers PRN DVT prophylaxis?Lovenox Full code inpt: alcohol withdrawal and DTs late entry from 08/20 Quality Stroke Does the patient have a stroke diagnosis?: No VTE Prior VTE?: No VTE Risk Level:: Medical - moderate - high VTE Device Contraindication: Treatment Not Indicated VTE Drug Contraindication: N/A - Med Ordered
[2024-08-20] MEDS: Melatonin 3 MG TABLET 6 MG PO (21:04)
[2024-08-20] MEDS: PHENobarbitaL 15 MG TABLET PO (21:04)
[2024-08-20 22:03] LABS: Anion Gap 12 (12-20); Carbon Dioxide 25 mmol/L (22-29); Chloride 98 mmol/L (96-108); Potassium 3.1 mmol/L (3.3-5.1); Sodium 132 mmol/L (135-145)
[2024-08-20] MEDS: Potassium Chloride Packet 20 MEQ PACKET 40 MEQ PO (23:03)
[2024-08-21] MEDS: Acetaminophen 325 MG TABLET 650 MG PO (01:50)
[2024-08-21 03:08] VITALS: BP 136/66; PULSE 92; RESP 18; TEMP 36.8; O2SAT 94
[2024-08-21 07:12] LABS: Hematocrit 36.4 % (42.0-52.0); Hemoglobin 12.9 g/dl (14.0-18.0); Mean Corpuscular HGB Conc 35.4 g/dl (31.0-36.0); Mean Corpuscular Hemoglobin 32.3 pg (27.0-33.0); Mean Corpuscular Volume 91.2 fL (80.0-98.0); Mean Platelet Volume 9.7 fL (9.4-12.4); Platelet Count 233 X10*3/uL (160-400); Red Blood Count 3.99 X10*6/uL (4.60-5.80); Red Cell Distribution Width 14.6 % (11.0-16.0); White Blood Count 11.1 X10*3/uL (4.8-10.8)
[2024-08-21 07:25] LABS: Anion Gap 11 (12-20); Blood Urea Nitrogen 4 mg/dL (9-16); Calcium 8.6 mg/dL (8.4-10.2); Carbon Dioxide 28 mmol/L (22-29); Chloride 98 mmol/L (96-108); Creatinine Clr Calc Pharmacy 83.3; Estimated Glomerular Filt Rate > 60; Glucose Random 114 mg/dL (60-115); Potassium 3.4 mmol/L (3.3-5.1); Sodium 134 mmol/L (135-145)
[2024-08-21 07:59] VITALS: BP 145/67; PULSE 94; RESP 18; TEMP 36.5; O2SAT 92
--- NOTE | 2024-08-21 08:29 | MHC.CM.PN ---
PT'S SISTER REQUESTING ORDER FOR [facility], TASK AND TIGER MESSAGES SENT, CM HAS REQUESTED TO NOTIFY CM IF PT'S SITER COMES IN WE DO NOT HAVE A CONTACT NUMBER/NAME ON FILE.
--- NOTE | 2024-08-21 09:02 | MHC.CM.PN ---
CM MET W/PT D/T CM RECEIVING A MESSAGE FROM PT'S SISTER THAT PT WOULD LIKE A DR'S ORDER FOR [facility], PT GIVES VERBAL CONSENT TO SPEAK W/HIS SISTER PABLITO [phone] AND WOULD LIKE EC TO REACH OUT TO HIS SISTER AND FOR HER TO BE SENIOR DENTIST FOR [facility], TASK SENT. ANTIC PT WILL BE DISCHARGED HOME TODAY W/NEW REFERRAL TO [facility] AND FAMILY FOR TRANSPORT
[2024-08-21] MEDS: amLODIPine Besylate 10 MG TABLET PO (11:10)
[2024-08-21 11:27] VITALS: BP 130/84; PULSE 96; RESP 18; TEMP 36.1; O2SAT 93
[2024-08-21] MEDS: PHENobarbitaL 15 MG TABLET PO (12:59)
[2024-08-21] MEDS: Multivitamin TABLET 1 TAB PO (12:59)
[2024-08-21] MEDS: Enoxaparin Sodium 40 MG/0.4 ML SYRINGE SUBCUT (12:59)
--- NOTE | 2024-08-21 13:02 | P.DS_ITS ---
DS: Providers Provider Date of Service: 08/21/24 Date of admission: 08/18/24 12:13 Date of discharge: 08/21/24 Primary care physician: Analy Diaz MD Consults: 08/18/24 00:24 ED CARE Team Crisis Consult Routine Comment: Reason for consultation: Visual hallucinations DS: Diagnosis Discharge Diagnosis (1) Hallucination, visual: Status: Acute (2) Delirium tremens: Status: Acute (3) Metabolic encephalopathy: Status: Acute DS: Summary Hospital Course Hospital Course: admission hpi Chief Complaint: Confusion and encephalopathy History was obtained from the medical record, RN, ED record, EMS report, and [facility] records, as the patient is sedated and unable to provide information directly. The patient is a 69-year-old male with a history of alcohol abuse, COPD, hypertension, and anxiety, presenting with confusion. According to [facility] records, he consumes approximately 24 beers weekly. He was reportedly confused and hallucinating when he approached a neighbor, who called 911. By the time EMS arrived, he had returned to his home, where he was found holding a machete and claiming to see and hear a woman. Upon arrival at the ED, the patient was agitated and was sedated with a B-52 cocktail (Benadryl 25 mg, Haldol 5 mg, and Ativan 2 mg). Since sedation, he has remained very lethargic and unable to provide history. Laboratory results show a WBC of 13, sodium of 129, an unremarkable urinalysis, and a negative drug screen. He has been admitted for presumed alcohol withdrawal. Phenobarbital was ordered but has not yet been administered due to his current level of sedation from the B-52 Hospital Course: Patient presented with alcohol withdrawal with DTs as described above. Given the severity of his initial presentation, he was sedated with Haldol, Ativan, and Benadryl and ultimately initiated on the phenobarbital protocol for alcohol withdrawal and DTs. He responded well, and by the second day of hospitalization, his hallucinations had resolved, and he was cooperative and alert. He was given vitamins, folic acid, and thiamine supplementation. The Addiction Medicine team will follow up with him on an outpatient basis. I have personally advised him to stop drinking and educated him on the potential detrimental effects of alcohol. A referral is being made to [facility] for further assistance. Physical Therapy has evaluated him, and no home services are indicated. HypOnatremia?chronic stable and related to chronic alcohol use Mild leukocytosis?likely reactive, and has come down, no signs of infection Hypertension? continue norvasc Anxiety-stable--stable without meds History of COPD?no acute exacerbation, inhalers DC Dispo: home Time Attestation Discharge Coordination Time (in mins): 40 Quality: Safe Use of Opioids Does Pt have an Active Cancer Diagnosis on the Problem List?: No Quality: Stroke Does the patient have a stroke diagnosis?: No Physical Exam Vital Signs: Vital Signs: Last Vital Signs Temp 97.0 F 08/21/24 11:27 Pulse 96 08/21/24 11:27 Resp 18 08/21/24 11:27 BP 130/84 08/21/24 11:27 Pulse Ox 93 08/21/24 11:27 O2 Del Method Room Air 08/21/24 11:27 BMI result Body Mass Index 22.3 Const: Other: General: AO X 3, no acute distress Resp: CTA bilateral CVS: S1,S2,RRR GI: +BS, NT, no distention Skin: No rash Neuro: motor grossly intact Psych: appropriate affect DS: Data Data Completed and Pending Labs on day of discharge: Laboratory Results - last 24 hr 08/20/24 08/21/24 21:46 06:43 WBC 11.1 H RBC 3.99 L Hgb 12.9 L Hct 36.4 L MCV 91.2 MCH 32.3 MCHC 35.4 RDW 14.6 Plt Count 233 MPV 9.7 Absolute Nucleated RBC 0.000 Nucleated RBC % (auto) 0.0 Sodium 132 L 134 L Potassium 3.1 L D 3.4 Chloride 98 98 Carbon Dioxide 25 28 Anion Gap 12 11 L BUN 4 L Creatinine 0.72 Estim Creat Clear Calc 83.3 Estimated GFR > 60 Random Glucose 114 Calcium 8.6 Discharge Plan Discharge Anticipated Discharge Date/Time: 08/21/24 13:03 Patient Disposition: Home Health Service Discharge Diagnosis: For withdrawal, delirium tremens, and metabolic encephalopathy. Referrals: [facility] ([facility]) [Other] - 1 Week (HOME HEALTH SERVICES) Analy Diaz MD [Primary Care Provider] - 1 Week Discharge Medications: Continued meloxicam 15 mg tablet 15 mg PO DAILY amlodipine 10 mg tablet 10 mg PO DAILY albuterol sulfate 90 mcg/actuation HFA aerosol inhaler 2 puff inhalation Q6H PRN (Reason: wheezing) Discharge Orders: Discharge Order (Routine); Ordered 08/21/24 Ordered By: Guilherme Coreas Diet: Advance to usual diet Activity on Discharge: As tolerated Stand Alone Forms: Patient Portal Discharge page Print Language: Yoruba Care Plan Goals: Recovery and sobriety Health Concerns: Alcohol dependency Alcohol withdrawal with DTs. Plan of Treatment: Patient advised to stop drinking and to stay sober and also been given outpatient resources to help him achieve this goal. Assessment: see above
[2024-08-21] MEDS: Thiamine HCL 100 MG in 0.9 % Sodium Chloride 100 ML 202 MG IV (13:03)
[2024-08-21] MEDS: 0.9 % Sodium Chloride Flush 3 ML SYRINGE IVFLUSH (13:05)
[2024-08-21] MEDS: Folic Acid 1 MG in 0.9 % Sodium Chloride 50 ML 100.4 MG IV (13:09)
== END 2024-08-21 15:15 | disposition home or self-care (01) | DRG 896 ==
LOC: HO.ED 08-18 10:06 → HO.EDOVER 08-18 12:23 → HO.IMC 08-18 16:57
PROVIDERS: Emergency Medicine; Admitting Provider Internal Medicine; Emergency Provider Emergency Medicine Emergency Medical Services; PCP Internal Medicine; Visit Provider Internal Medicine
DX: F10.231 Alcohol dependence with withdrawal delirium (principal); G93.41 Metabolic encephalopathy; E87.1 Hypo-osmolality and hyponatremia; I10 Essential (primary) hypertension; F41.9 Anxiety disorder, unspecified; J44.9 Chronic obstructive pulmonary disease, unspecified; Z79.899 Other long term (current) drug therapy
CPT/HCPCS: 36415; 80048; 80051; 80053; 80076; 80307; 81001; 82140; 83735; 85025; 85027; 93005; 97161; 99285; J1200; J1630; J1650; J2060; J2560; J3411; J7120

== ENCOUNTER 2024-08-18 12:13 | Outpatient (BNV) | payer MEDICARE, SELFPAY | END 2024-08-19 13:07 | PROVIDERS: Admitting Provider Internal Medicine; Emergency Provider Emergency Medicine Emergency Medical Services; PCP Internal Medicine; Visit Provider Internal Medicine Cardiovascular Disease | DX: R94.31 Abnormal electrocardiogram [ECG] [EKG] (principal) | CPT/HCPCS: 93010 ==

== ENCOUNTER → 2024-08-18 12:13 | Outpatient (BNV) | payer MEDICARE, SELFPAY | PROVIDERS: Admitting Provider Internal Medicine; Emergency Provider Emergency Medicine Emergency Medical Services; PCP Internal Medicine; Visit Provider Internal Medicine | DX: R44.1 Visual hallucinations (principal); F10.931 Alcohol use, unspecified with withdrawal delirium | CPT/HCPCS: 99222; 99232 ==